=== PATIENT | female | born 1995 | race African-American/Black ===

== ENCOUNTER 2017-02-06 17:12 | Emergency (ER) | payer OTHER ==
[2017-02-06 17:19] VITALS: RESP 16; TEMP 98.4
[2017-02-06] MEDS ORDERED: LIDOCAINE 2% JELLY 20 ML (UROJECT) ONE (17:23)
--- NOTE | 2017-02-06 17:24 | EDPHY ---
H & P Stated Complaint: Minor tauma, head lac Time Seen by Provider: 02/06/17 17:17 HPI/ROS: CHIEF COMPLAINT: Limited trauma activation, scalp laceration, fall from horse HISTORY OF PRESENT ILLNESS: The patient presents to the ED is limited trauma activation by paramedics. She reportedly was horseback riding when she fell from her horse. Witnesses believe she may have struck her head on a metal railing. There was a questionable loss of consciousness. The patient complains of a mild headache in the area of a left occipital hematoma. She also sustained a laceration to her left frontal scalp. Patient has abrasion over her right shoulder as well as right buttock. She has chronic right shoulder pain which is slightly worsened from the fall. She has no complaints of acute chest pain, back pain, difficulty breathing or lower extremity complaints. REVIEW OF SYSTEMS: A comprehensive 10 point review of systems is otherwise negative aside from elements mentioned in the history of present illness. Source: Patient Exam Limitations: No limitations - Medical/Surgical History PMH: Past medical history: Noncontributory - Family History Significant Family History: No pertinent family hx - Social History Smoking Status: Never smoked - Physical Exam Exam: General Appearance: Alert, no distress Head: 6 cm x 3 cm left temporal scalp hematoma, 3 cm frontal scalp laceration Eyes: Pupils equal, round, reactive ENT, Mouth: No hemotympanum, no oral trauma Neck: Nontender, trachea midline Respiratory: No chest wall tender, subcutaneous air, lungs clear bilaterally Cardiovascular: Regular rate and rhythm Abdomen: Abdomen is soft and nontender, pelvis stable Skin: Abrasion noted to right shoulder and right gluteal area Back: No midline T/L/S pain Extremities: Nontender, full range of motion Neurological: GCS 15, 5/5 strength noted all 4 extremities, cranial nerves 2- 12 intact, sensation intact to light touch Constitutional: Initial Vital Signs Temperature (C) 36.9 C 02/06/17 17:18 Heart Rate 121 H 02/06/17 17:18 Respiratory Rate 16 02/06/17 17:18 Blood Pressure 142/79 H 02/06/17 17:18 O2 Sat (%) 97 02/06/17 17:18 O2 Delivery Mode Room Air Allergies/Adverse Reactions: minicycline Allergy (Uncoded 02/06/17 17:15) Home Medications: Medication Instructions Recorded Nexplanon 02/06/17 Medical Decision Making - Diagnostics Imaging Results: CT head without contrast: Images reviewed by myself and discussed with radiologist, negative for intracranial hemorrhage, no skull fracture noted, large scalp hematoma present. Procedures: Procedure: Laceration repair. Verbal consent was obtained from the patient. The 3 cm laceration on the scalp was anesthetized using lidocaine with epinephrine. The wound was scrubbed, draped and explored to its base with a gloved finger. There were no deep structures involved. The wound was repaired with 4-0 Prolene sutures. The wound repair was simple. The procedure was performed by myself. ED Course/Re-evaluation: The patient presents to the ED is limited trauma activation. The patient reportedly had a loss of consciousness. She does have fairly significant scalp hematoma. She was taken for a stat CT scan of the head which demonstrates no evidence of intracranial hemorrhage or skull fracture. The patient return to the emergency department and was re-evaluated. Her GCS is 15 and her neurologic examination is unremarkable. The patient was downgraded from a limited trauma activation by myself. The patient had her laceration repaired in the ED without complication. Patient was observed in the ED without evidence of additional traumatic injury aside from superficial abrasions. The patient will be instructed to ice her scalp. She will return in 10 days for suture removal. The patient is discharged home with customary aftercare instructions and return precautions. Differential Diagnosis: Differential diagnosis considered includes intracranial hemorrhage, skull fracture, scalp hematoma, laceration, cervical spine injury, extremity injury Departure - Departure Disposition: Home, Routine, Self-Care Clinical Impression: Scalp hematoma Qualifiers: Encounter type: initial encounter Qualified Code(s): S00.03XA - Contusion of scalp, initial encounter Scalp laceration Qualifiers: Encounter type: initial encounter Qualified Code(s): S01.01XA - Laceration without foreign body of scalp, initial encounter Shoulder abrasion Qualifiers: Encounter type: initial encounter Laterality: right Qualified Code(s): S40.211A - Abrasion of right shoulder, initial encounter Condition: Good Instructions: Hematoma (ED), Laceration (ED) Additional Instructions: 1. Ice area of swelling frequently. 2. Tylenol or ibuprofen as needed for pain. 3. Please return to the ED for severe headache, nausea, vomiting or other concerns. 4. Return to ED in 10 days for suture removal.
[2017-02-06 18:30] VITALS: BP 128/84; PULSE 102; O2SAT 98
== END 2017-02-06 18:29 | disposition home or self-care (01) ==
PROC: 0HQ0XZZ Repair Scalp Skin, External Approach (ICD-10-PCS; principal; 2017-02-06)
DX: S01.01XA Laceration without foreign body of scalp, initial encounter (principal); S40.211A Abrasion of right shoulder, initial encounter; V80.010A Animal-rider injured by fall from or being thrown from horse in noncollision accident, initial encounter; Y99.8 Other external cause status; Y93.52 Activity, horseback riding